=== PATIENT | female | born 1940 | race Caucasian/White ===

== ENCOUNTER → 2024-12-30 14:16 | Outpatient (REF) | payer MEDICARE, SELFPAY | LOC: HWRAD 14:16 | PROVIDERS: ATTENDING PHYSICIAN Student in an Organized Health Care Education/Training Program | DX: M25.552 Pain in left hip (principal); W19.XXXA Unspecified fall, initial encounter | CPT/HCPCS: 73502; 73552 ==

== ENCOUNTER → 2025-01-19 10:19 | Outpatient (REF) | payer MEDICARE, SELFPAY | LOC: HWRAD 10:19 | PROVIDERS: ATTENDING PHYSICIAN Student in an Organized Health Care Education/Training Program | DX: M79.661 Pain in right lower leg (principal) | CPT/HCPCS: 93970 ==

== ENCOUNTER → 2025-01-27 11:14 | Outpatient (REF) | payer MEDICARE, SELFPAY ==
[2025-01-27 16:35] LABS: % Eosinophils 4.8 % (0-6); % Immature Granulocytes 0.2 % (0-0.5); % Lymphocytes 33.3 % (20.5-51.1); % Monocytes 9.2 % (1.7-9.3); % Neutrophils 51.5 % (42.2-75.2); Absolute Basophils 0.1 10^3/uL (0-0.2); Absolute Eosinophils 0.3 10^3/uL (0-0.7); Absolute Monocytes 0.6 10^3/uL (0.1-0.6); Absolute Neutrophils 3.1 10^3/uL (1.4-6.5); Hematocrit 38.7 % (37.0-47.0); Hemoglobin 12.8 g/dL (12.0-16.0); Mean Corp Hgb Conc. 33.1 g/dL (33.0-37.0); Mean Corpuscular Hgb 31.1 pg (27.0-31.0); Mean Corpuscular Volume 94.2 fL (81.0-99.0); Mean Platelet Volume 10.1 fL (7.4-10.4); Nucleated Red Blood Cells % 0 %; Platelet Count 289 10^3/uL (130-400); Red Blood Cell Count 4.11 10^6/uL (4.20-5.40); Red Cell Dist. Width 13.1 % (11.5-14.5)
[2025-01-27 16:50] LABS: ALT (SGPT) 18 U/L (0-35); AST (SGOT) 26 U/L (14-36); Albumin 4.2 g/dl (3.5-5.0); Alkaline Phosphatase 112 U/L (38-126); Blood Urea Nitrogen 28 mg/dl (7-17); Calcium 9.3 mg/dl (8.4-10.2); Carbon Dioxide 28 mmol/L (22-30); Chloride 101 mmol/L (98-107); Glucose 84 mg/dl (70-99); HDL Cholesterol 64 mg/dl; LDL Cholesterol, Calculated 145 mg/dl; Potassium 4.4 mmol/L (3.5-5.1); Sodium 137 mmol/L (135-145); Total Bilirubin 1.1 mg/dl (0.2-1.3); Total Cholesterol 234 mg/dl (50-199); Total Protein 6.8 g/dl (6.3-8.2); Triglyceride 128 mg/dl (10-149); Very Low Density Lipoprotein 25 mg/dl (0-30); eGFR > 60.00
[2025-01-27 17:03] LABS: NT-proBNP 140 pg/ml
[2025-01-28 10:00] LABS: Glycohemoglobin (HgbA1c) 5.4 % (4.0-5.6)
== END ==
LOC: HWLAB 11:14
PROVIDERS: ATTENDING PHYSICIAN Student in an Organized Health Care Education/Training Program
DX: R60.0 Localized edema (principal); R06.89 Other abnormalities of breathing; E78.2 Mixed hyperlipidemia; F41.1 Generalized anxiety disorder; R51.9 Headache, unspecified
CPT/HCPCS: 36415; 71046; 80053; 80061; 83036; 83880; 85025

== ENCOUNTER → 2025-03-03 14:44 | Outpatient (REF) | payer MEDICARE, SELFPAY | LOC: HWRCS 14:44 | PROVIDERS: ATTENDING PHYSICIAN Student in an Organized Health Care Education/Training Program | DX: R60.0 Localized edema (principal); R06.89 Other abnormalities of breathing | CPT/HCPCS: 93306 ==

== ENCOUNTER → 2025-06-12 13:20 | Outpatient (REF) | payer MEDICARE, SELFPAY | LOC: HWWDC 13:20 | PROVIDERS: ATTENDING PHYSICIAN Student in an Organized Health Care Education/Training Program | DX: Z12.31 Encounter for screening mammogram for malignant neoplasm of breast (principal) | CPT/HCPCS: 77063; 77067 ==